=== PATIENT | male | born 1975 | race Caucasian/White ===

== ENCOUNTER 2017-06-15 22:44 | Emergency (ER) | payer MEDICAID ==
[~2017-06-15] VITALS: Ht 172.7 cm; Wt 79.4 kg
[2017-06-15 22:45] VITALS: BP 123/79
--- NOTE | 2017-06-16 00:01 | NUR ---
CALLED PT IN [place], NO RESPONSE
--- NOTE | 2017-06-16 00:46 | NUR ---
CALLED PT IN [place], NO RESPONSE
== END 2017-06-16 00:49 | disposition left against medical advice (07) ==
LOC: ER 22:44
DX: Z53.21 Procedure and treatment not carried out due to patient leaving prior to being seen by health care provider (principal)
CPT/HCPCS: A4606; Z7610

== ENCOUNTER 2018-04-20 04:00 | Emergency (ER) | payer MEDICAID, OTHER ==
[~2018-04-20] VITALS: Ht 172.7 cm; Wt 71.7 kg
[2018-04-20 04:06] VITALS: BP 110/63
[2018-04-20] MEDS ORDERED: SULFAMETH/TRIMETH 800/160 MG 1 UDTAB TABLET PO ONE ×2 (04:30→04:34)
[2018-04-20] MEDS ORDERED: CEFTRIAXONE 1 G VIAL IM ONE (04:30)
[2018-04-20] MEDS ORDERED: LIDOCAINE /MPF 1% VIAL 5 ML VIAL ONE (04:34)
[2018-04-20] MEDS ORDERED: CEFTRIAXONE 1 G VIAL ONE (04:34)
== END 2018-04-20 04:51 | disposition home or self-care (01) ==
LOC: ER 04:00
DX: L03.221 Cellulitis of neck (principal); L72.0 Epidermal cyst
CPT/HCPCS: A4606; J0696; J3490; Z7610

== ENCOUNTER 2018-04-27 05:46 | Emergency (ER) | payer MEDICAID, OTHER ==
[~2018-04-27] VITALS: Ht 170.2 cm; Wt 68.0 kg
[2018-04-27 05:46] VITALS: BP 123/68
[2018-04-27 07:20] LABS: BASOPHILS # (AUTO) 0.1 /CMM (0.0-0.2); BASOPHILS % (AUTO) 0.8 % (0.0-2.0); EOSINOPHILS % (AUTO) 4.4 % (0.0-6.0); HEMATOCRIT 39 % (39-51); HEMOGLOBIN 13.4 g/dL (13.5-17.5); LYMPHOCYTES % (AUTO) 29.4 % (20.0-44.0); MEAN CORPUSCULAR HGB CONC 34 g/dl (31.0-36.0); MEAN CORPUSCULAR VOLUME 94 fL (80-96); MONOCYTES # (AUTO) 0.8 /CMM (0.1-1.30); MONOCYTES % (AUTO) 11.8 % (2.0-12.0); NEUTROPHILS # (AUTO) 3.7 /CMM (1.8-8.9); NEUTROPHILS % (AUTO) 53.6 % (43.0-81.0); PLATELET COUNT (AUTO) 267 /CMM (150-450); RDW COEFFICIENT OF VARIATION 13.2 (11.5-15.0); RED BLOOD CELL COUNT(AUTO) 4.18 MIL/uL (4.5-6.0); WHITE BLOOD COUNT (AUTO) 6.9 K/uL (4.3-11.0)
== END 2018-04-27 07:46 | disposition home or self-care (01) ==
LOC: ER 05:46
DX: D17.0 Benign lipomatous neoplasm of skin and subcutaneous tissue of head, face and neck (principal)
CPT/HCPCS: 36415; 85025-TC; A4606; Z7610

== ENCOUNTER 2020-01-07 05:42 | Emergency (ER) | payer MEDICAID ==
[~2020-01-07] VITALS: Ht 172.7 cm; Wt 86.2 kg
--- NOTE | 2020-01-07 06:03 | NUR ---
BIBS. C/O L THUMB PAIN 2ND TO WOUND. PT FEEL SOMETHING IS INSIDE. PT WORKING WITH AND AUGER, FEELS TINGLING. VSS TO ER BED 4 AWAITING MED EVAL
[2020-01-07] MEDS ORDERED: TDAP [DIPH/PERTUSSIS/TET] 0.5 ML VIAL IM ONE ×2 (06:45→07:00)
--- NOTE | 2020-01-07 07:15 | NUR ---
Patient discharged to home in stable condition. Written and verbal after care instructions given. Patient verbalizes understanding of instruction.
[2020-01-07 07:16] VITALS: BP 133/86
== END 2020-01-07 07:16 | disposition home or self-care (01) ==
LOC: ER 05:42
DX: S61.032A Puncture wound without foreign body of left thumb without damage to nail, initial encounter (principal); F17.210 Nicotine dependence, cigarettes, uncomplicated; Z98.890 Other specified postprocedural states; X58.XXXA Exposure to other specified factors, initial encounter; Y93.89 Activity, other specified; Y92.89 Other specified places as the place of occurrence of the external cause; Y99.8 Other external cause status
CPT/HCPCS: 73140-TC; 90715

== ENCOUNTER 2021-04-25 04:07 | Emergency (ER) | payer MEDICAID ==
[~2021-04-25] VITALS: Ht 172.7 cm; Wt 86.2 kg
[2021-04-25 04:07] VITALS: BP 132/64
== END 2021-04-25 04:45 | disposition home or self-care (01) ==
LOC: ER 04:10
DX: Z02.89 Encounter for other administrative examinations (principal); F10.10 Alcohol abuse, uncomplicated; F17.200 Nicotine dependence, unspecified, uncomplicated; Y90.9 Presence of alcohol in blood, level not specified; Z98.890 Other specified postprocedural states

== ENCOUNTER 2022-04-15 22:24 | Emergency (ER) | payer MEDICAID ==
[~2022-04-15] VITALS: Ht 172.7 cm; Wt 81.6 kg
[2022-04-15 23:37] VITALS: BP 146/85
[2022-04-15] MEDS ORDERED: AMOX500C2 PO (23:39)
--- NOTE | 2022-04-15 23:42 | NUR ---
Patient discharged to home in stable condition. Written and verbal after care instructions given. Patient verbalizes understanding of instruction.
== END 2022-04-15 23:43 | disposition home or self-care (01) ==
LOC: ER 22:28
DX: H66.91 Otitis media, unspecified, right ear (principal); F17.200 Nicotine dependence, unspecified, uncomplicated

== ENCOUNTER 2022-06-24 03:29 | Emergency (ER) | payer MEDICAID ==
[~2022-06-24] VITALS: Ht 172.7 cm; Wt 86.2 kg
[~2022-06-24 03:29] MED LIST: AMOX500C2 PO
--- NOTE | 2022-06-24 03:35 | NUR ---
TO ER BED 11. BIBS C/O BLOOD IN STOOL X 5-6 DAYS. BLOOD DESCRIBED "BRIGHT RED". PT IS ALERT AND ORIENTED. AMBULATORY WITH STEADY GAIT. CONNECTED TO MONITOR. AWAITING MD ORDERS.
[2022-06-24 04:22] LABS: BASOPHILS % (AUTO) 0.7 % (0.0-2.0); EOSINOPHILS % (AUTO) 1.8 % (0.0-6.0); HEMATOCRIT 39 % (39-51); HEMOGLOBIN 13.3 g/dL (13.5-17.5); LYMPHOCYTES # (AUTO) 1.7 K/uL (0.8-4.8); LYMPHOCYTES % (AUTO) 30.1 % (20.0-44.0); MEAN CORPUSCULAR HGB CONC 34 g/dl (31.0-36.0); MEAN CORPUSCULAR VOLUME 93 fL (80-96); MONOCYTES # (AUTO) 0.4 K/uL (0.1-1.30); MONOCYTES % (AUTO) 7.2 % (2.0-12.0); NEUTROPHILS # (AUTO) 3.4 K/uL (1.8-8.9); NEUTROPHILS % (AUTO) 60.2 % (43.0-81.0); PLATELET COUNT (AUTO) 222 K/uL (150-450); RED BLOOD CELL COUNT(AUTO) 4.17 MIL/uL (4.5-6.0); WHITE BLOOD COUNT (AUTO) 5.6 K/uL (4.3-11.0)
[2022-06-24 04:45] LABS: CALCIUM, SERUM 8.5 mg/dL (8.5-10.1); CREATININE 1.1 mg/dL (0.6-1.3)
[2022-06-24 04:51] LABS: ALBUMIN 3.3 g/dL (3.4-5.0); BILIRUBIN,DIRECT 0.1 mg/dL (0.0-0.2); BILIRUBIN,TOTAL 0.1 mg/dL (0.2-1.0); TOTAL PROTEIN, SERUM 6.6 g/dL (6.4-8.2)
--- NOTE | 2022-06-24 06:46 | NUR ---
CALLED [facility]
--- NOTE | 2022-06-24 07:16 | NUR ---
Patient discharged to home in stable condition. Written and verbal after care instructions given. Patient verbalizes understanding of instruction. PT ambulatory with a steady gait
[2022-06-24 07:17] VITALS: BP 115/72
== END 2022-06-24 07:17 | disposition home or self-care (01) ==
LOC: ER 03:53
DX: K92.1 Melena (principal); F17.200 Nicotine dependence, unspecified, uncomplicated; Z79.899 Other long term (current) drug therapy
CPT/HCPCS: 36415; 80048-TC; 80076-TC; 83690-TC; 85025-TC; 85730-TC

== ENCOUNTER 2023-02-22 05:29 | Emergency (ER) | payer MEDICAID ==
[~2023-02-22] VITALS: Ht 172.7 cm; Wt 86.2 kg
--- NOTE | 2023-02-22 05:29 | NUR ---
PT BIBSELF W/ C/O SORE THROAT AND COUGH X 9 DAYS. PT AAOX4, IN NAD. PLACED COMFORTABY IN BED, VITALS CHECKED.
--- NOTE | 2023-02-22 06:37 | NUR ---
STREP SWAB COLLECTED AND SENT TO LAB
--- NOTE | 2023-02-22 07:04 | NUR ---
DRILL OPERATOR AUTOMATIC AT PT'S BEDSIDE
--- NOTE | 2023-02-22 07:10 | NUR ---
REPORT GIVEN TO KAMALJIT BROCK RN FOR CONTINUITY OF CARE
[2023-02-22] MEDS ORDERED: ALBU18HF2 INH (08:17)
[2023-02-22 08:27] VITALS: BP 122/72
--- NOTE | 2023-02-22 08:29 | NUR ---
Patient discharged to home in stable condition. Written and verbal after care instructions given. Patient verbalizes understanding of instruction.
== END 2023-02-22 08:29 | disposition home or self-care (01) ==
LOC: ER 05:30
DX: J06.9 Acute upper respiratory infection, unspecified (principal); F17.200 Nicotine dependence, unspecified, uncomplicated
CPT/HCPCS: 71045-TC; 86403-TC